=== PATIENT | female | born 1940 | race Caucasian/White ===

== ENCOUNTER → 2017-08-23 | Outpatient (CLI) | payer MEDICARE, BC | END | disposition home or self-care (01) | LOC: HKI 11:26 | DX: Z47.1 Aftercare following joint replacement surgery (principal); Z96.651 Presence of right artificial knee joint; Z96.643 Presence of artificial hip joint, bilateral; Z96.612 Presence of left artificial shoulder joint | CPT/HCPCS: 73560; 73560-RT ==